=== PATIENT | female | born 1950 | race Caucasian/White ===

== ENCOUNTER 2020-07-20 09:49 | Outpatient (CLI) | payer MEDICARE, SELFPAY ==
[2020-07-20 10:17] LABS: Anion Gap 6 mmol/L (8-16); Blood Urea Nitrogen 29 mg/dL (7-17); Calcium 9.1 mg/dL (8.4-10.2); Carbon Dioxide 31 mmol/L (22-30); Chloride 100 mmol/L (98-107); Estimated Glomerular Filt Rate > 60; Glucose 222 mg/dL (65-105); Potassium 4.3 mmol/L (3.4-5.0); Sodium 137 mmol/L (137-145)
== END 2020-07-20 09:50 | disposition home or self-care (01) ==
LOC: ANHLAB 09:51
PROVIDERS: PCP Family Medicine; Visit Provider Nurse Practitioner Family
DX: R94.4 Abnormal results of kidney function studies (principal)
CPT/HCPCS: 36415; 80048

== ENCOUNTER 2020-10-14 12:27 | Outpatient (CLI) | payer MEDICARE, SELFPAY ==
--- NOTE | ~2020-10-14 | MR_ITS ---
EXAMINATION: MR brain/brain stem wo/w con DATE: 10/14/2020 13:46 INDICATION: Other amnesia. Dizziness. TECHNIQUE: Magnetic resonance imaging (MRI) of the brain and brainstem was performed without and with 15 mL MultiHance intravenous contrast. Sequences included sagittal and axial T1-weighted FSE, axial diffusion-weighted FS EPI, axial T2*-weighted GRE, axial T2-weighted FLAIR Propeller, and axial T2-we ighted Propeller. Postcontrast sequences included axial and coronal T1-weighted FSE. Apparent diffusi on coefficient (ADC) maps were created. COMPARISON: None. FINDINGS: There is no acute ischemic infarct or abnormal mass lesion. There is chronic encephalomalac ia in the left basal ganglia and anterior limb left internal capsule with 11 mm chronic intraparenchy mal hematoma. There are scattered areas of nonspecific increased T2-weighted signal intensity in the cerebral white matter and right lentiform nucleus. There is a small old infarct in left cerebellum. T here is ex vacuo dilatation of anterior body of left lateral ventricle. There are likely changes of o cular lens replacement surgeries. The paranasal sinuses are clear. The mastoid air cells are normal. IMPRESSION: 1. Chronic encephalomalacia involving the left basal ganglia and anterior limb left internal capsule with 11 mm chronic intraparenchymal hematoma. 2. Small old infarct in left cerebellum. 3. Moderate nonspecific cerebral white matter disease and disease of the right lentiform nucleus, whi ch likely represents chronic small vessel ischemic disease. Reviewed, dictated and finalized at location B. IMPRESSION: 1. Chronic encephalomalacia involving the left basal ganglia and anterior limb left internal capsule with 11 mm chronic intraparenchymal hematoma. 2. Small old infarct in left cerebellum. 3. Moderate nonspecific cerebral white matter disease and disease of the right lentiform nucleus, which likely represents chronic small vessel ischemic diseas e.
--- NOTE | ~2020-10-14 | US_ITS ---
EXAMINATION: US carotid duplex BI DATE: 10/14/2020 13:08 INDICATION: Dizziness and giddiness TECHNIQUE: Grayscale, color Doppler, and pulsed Doppler images of the cervical carotid arteries were obtained. The degree of vessel stenosis is placed in one of the following categories: normal, <50%, 5 0-69%, >=70% but less than near-occlusion, near-occlusion, or total occlusion. Note that percent sten osis relative to normal distal artery lumen diameter is indirectly measured from velocity measurement s as described by Dave, et al. Radiology 2003; 229:340-346. Notes: Normal: Peak systolic velocity <125 centimeters/sec and no plaque <50%. Peak systolic velocity <125 ( EDV <40; ICA/CCA PSV ratio <2.0; used these factors only a tandem lesions or low cardiac output or co ntralateral disease) 50-69 %: PSV 125-230 (EDV 40-100; ratio 2-4) >= 70% but less than near occlusion: PSV greater than 230 (EDV > 100; ratio> 4.0) Near Occlusion: PSV that is variable; markedly narrowed lumen Occlusion: Absent flow on color/spectral Doppler and no lumen on strong scale. COMPARISON: None. FINDINGS: RIGHT: The right common carotid artery (CCA) peak systolic velocity (PSV) is 83 cm/s. The right internal car otid artery (ICA) PSV is 63 cm/s. The right ICA end-diastolic velocity (EDV) is 14 cm/s. The right IC A/CCA PSV ratio is 0.7. The external carotid artery (ECA) PSV is 108 cm/s. There is antegrade flow in the right vertebral artery. LEFT: The left CCA PSV is 91 cm/s. The left ICA PSV is 65 cm/s. The left ICA EDV is 14 cm/s. The left ICA/C CA PSV ratio is 0.7. The ECA PSV is 72 cm/s. There is antegrade flow in the left vertebral artery. IMPRESSION: 1. Less than 50% stenosis in the right internal carotid artery by sonographic criteria. 2. Less than 50% stenosis in the left internal carotid artery by sonographic criteria. Reviewed, dictated and finalized at location A. IMPRESSION: 1. Less than 50% stenosis in the right internal carotid artery by sonographic c caesar. 2. Less than 50% stenosis in the left internal carotid artery by sonographic adelia hendrix.
[2020-10-14 13:18] LABS: Estimated Glomerular Filt Rate > 60
== END 2020-10-14 12:28 | disposition home or self-care (01) ==
LOC: ANHIMG 12:29
PROVIDERS: PCP Family Medicine; Visit Provider Physician Assistant Medical
DX: R42 Dizziness and giddiness (principal); R53.1 Weakness; R41.3 Other amnesia; Z91.89 Other specified personal risk factors, not elsewhere classified; G93.89 Other specified disorders of brain; R90.82 White matter disease, unspecified; Z86.73 Personal history of transient ischemic attack (TIA), and cerebral infarction without residual deficits; I65.23 Occlusion and stenosis of bilateral carotid arteries
CPT/HCPCS: 70553; 93880; A9577

== ENCOUNTER 2020-10-17 08:21 | Outpatient (CLI) | payer MEDICARE, SELFPAY ==
--- NOTE | 2020-10-17 08:38 | ECHO_ITS ---
Patient Info Name: Yen Juarez Age: 69 years : 1950 Gender: Female Ht: 63 in Wt: 180 lbs BSA: 1.94 m2 HR: 58 bpm BP: 185 / 92 mmHg Technical Quality: Good Exam Date: 10/17/2020 8:45 AM Exam Location: [facility] Pulmonary Patient Status: Outpatient Admit Date: 10/17/2020 Staff Ordering Physician: Brittany Taylor PAC Maintenance Shop Manager: Kerri Hartman RDCS Attending Provider: Brittany Taylor PAC Referring Physician: Brandon JONES; Exam Type: CA echo doppler color flow Study Info Indications - dizziness giddiness weakness Complete two-dimensional, color flow and Doppler transthoracic echocardiogram is performed. Summary 1. Complete two-dimensional, color flow and Doppler transthoracic echocardiogram is performed. 2. Left ventricular systolic function is normal, estimated at 60-65%. 3. There is mildly increased left ventricular wall thickness. 4. The left ventricular diastolic function is grade I diastolic dysfunction. 5. There is mild aortic valve sclerosis. 6. There is mild mitral valve regurgitation. 7. There is mild tricuspid valve regurgitation. 8. No pulmonary hypertension, estimated pulmonary arterial systolic pressure is 35 mmHg. Left Ventricle Left ventricular chamber dimension is normal. Left ventricular systolic function is normal, estimated at 60-65%. There is mildly increased left ventricular wall thickness. Left ventricular septal wall motion is normal. The left ventricular diastolic function is grade I diastolic dysfunction. Right Ventricle Right ventricular chamber dimension is normal. Right ventricular systolic function is normal. Left Atria Left atrial chamber dimension is normal. Right Atria Right atrial chamber dimension is normal. Atrial Septum Intact interatrial septum visualized by color flow imaging. Aortic Valve The aortic valve is trileaflet. There is mild aortic valve sclerosis. There is no aortic valve stenosis. There is no aortic valve regurgitation. Pulmonic Valve The pulmonic valve is normal. There is no pulmonic valve stenosis. There is no pulmonic regurgitation. Mitral Valve The mitral valve has normal leaflets. There is no mitral valve stenosis. There is mild mitral valve regurgitation. Tricuspid Valve The tricuspid valve leaflets are normal. There is no significant tricuspid valve stenosis. There is mild tricuspid valve regurgitation. No pulmonary hypertension, estimated pulmonary arterial systolic pressure is 35 mmHg. Pericardium/Pleural The pericardium appears normal. There is no pericardial effusion. Inferior Vena Cava Normal inferior vena cava with >50% collapse upon inspiration consistent with normal right atrial pressure, 5 mmHg. Aorta The aortic root size at the sinus of Valsalva is normal. The prox ascending aorta size is normal. Left Ventricular Outflow Tract Name Value Normal LVOT 2D LVOT Diameter 2.0 cm LVOT Doppler LVOT Peak Gradient 4 mmHg LVOT Mean Gradient 2 mmHg LVOT VTI 24 cm LVOT VTI/AV VT
--- NOTE | 2020-10-21 10:01 | WPDHOLTEREM ---
Holter/Event Monitor Holter/Event Monitor Date of procedure: 10/17/20 Procedure Type: 48 hour holter monitor Indications: Dizziness Conclusion: 1. 48 hour holter monitor on 10/17/20. 2. Underlying rhythm is sinus rhythm. HR range 47-99 bpm; average HR 60 bpm. 3. There are 12 premature supraventricular complexes and 6 supraventricular couplets. No supraventricular tachycardia. 4. No premature ventricular complexes. No ventricular tachycardia. 5. No sinoatrial or atrioventricular blocks. No significant pauses greater than 2 seconds. 6. Patient reports symptoms of light cramp which demonstrate sinus rhythm, HR range 59-65 bpm.
== END 2020-10-17 08:22 | disposition home or self-care (01) ==
LOC: ANHCARD 08:23
PROVIDERS: PCP Family Medicine; Visit Provider Physician Assistant Medical
DX: I34.0 Nonrheumatic mitral (valve) insufficiency (principal); I35.1 Nonrheumatic aortic (valve) insufficiency; I36.1 Nonrheumatic tricuspid (valve) insufficiency
CPT/HCPCS: 93225; 93226; 93306

== ENCOUNTER 2021-04-15 08:23 | Outpatient (CLI) | payer MEDICARE, SELFPAY ==
--- NOTE | ~2021-04-15 | US_ITS ---
EXAMINATION: US abdomen complete EXAM DATE: 04/15/2021 09:19 INDICATION: R10.11 - Right upper quadrant pain. TECHNIQUE: Multiple grayscale and Doppler images of the complete abdomen were obtained (by a technolo gist who performed the scan) and subsequently reviewed. There is no prior study for comparison. FINDINGS: The abdominal aorta is normal in caliber. Visualized portion IVC is patent. The pancreatic head a nd body are normal in appearance. The pancreatic tail is not visualized. The liver has normal echogenicity and contour. There are no focal liver lesions identified. There is no evidence of intrahepatic biliary duct dilation. Portal venous flow was seen in the hepatopedal , normal direction and has normal Doppler waveform. Common bile duct measures 3 mm, which is normal. The gallbladder fossa is unremarkable. Right kidney: There is normal contour and echogenicity. It measures 11.6 x 5.0 x 5.4 centimeters. There are no focal renal lesions identified. There is no hydronephrosis. Left kidney: There is normal contour and echogenicity. It measures 11.2 x 5.6 x 5.7 centimeters. T here are no focal renal lesions identified. There is no hydronephrosis. The spleen measures 10.5 centimeters and is morphologically normal. IMPRESSION: Unremarkable complete abdominal ultrasound exam. Reviewed, dictated and finalized at location A. NDENCY PROGRAM DIRECTOR
== END 2021-04-15 08:24 | disposition home or self-care (01) ==
LOC: ANHIMG 08:28
PROVIDERS: PCP Family Medicine; Visit Provider Physician Assistant Medical
DX: R10.11 Right upper quadrant pain (principal)
CPT/HCPCS: 76700

== ENCOUNTER 2022-02-26 12:56 | Outpatient (RCR) | payer MEDICARE, SELFPAY | END 2022-04-22 12:03 | disposition home or self-care (01) | LOC: ANHDMC 12:56 | PROVIDERS: PCP Family Medicine; Visit Provider Internal Medicine Endocrinology, Diabetes & Metabolism | DX: E11.65 Type 2 diabetes mellitus with hyperglycemia (principal); Z71.89 Other specified counseling | CPT/HCPCS: G0108 ==

== ENCOUNTER → 2022-05-13 13:01 | Outpatient (CLI) | payer MEDICARE, SELFPAY ==
--- NOTE | ~2022-05-13 | US_ITS ---
Renal-Bladder ultrasound Clinical History: Proteinuria Technique: Real-time sonographic imaging of the kidneys and urinary bladder was performed. Findings: The right kidney measures 11.4 cm in length and the left kidney measures 11.0 cm. There is no hydronephrosis or renal calculus identified. Renal cortical echogenicity is within normal limits. No renal mass lesion is identified. The urinary bladder is partially distended at the time of this exam. No intraluminal echoes are ident ified. No abnormal wall thickening is seen. Impression: Unremarkable ultrasound of the kidneys and urinary bladder. Reviewed, dictated and finalized at location M. ONAL TRAINING MANAGER Impression: Unremarkable ultrasound of the kidneys and urinary bladder.
== END ==
PROVIDERS: PCP Internal Medicine Nephrology; Visit Provider Internal Medicine Nephrology
DX: R80.8 Other proteinuria (principal); I12.9 Hypertensive chronic kidney disease with stage 1 through stage 4 chronic kidney disease, or unspecified chronic kidney disease; N18.31 Chronic kidney disease, stage 3a; E11.29 Type 2 diabetes mellitus with other diabetic kidney complication
CPT/HCPCS: 76775

== ENCOUNTER 2022-08-20 16:59 | Emergency (ER) | payer MEDICARE, SELFPAY ==
[2022-08-20 17:10] VITALS: BP 168/72; PULSE 63; RESP 16; TEMP 36.6; O2SAT 100
--- NOTE | 2022-08-20 17:10 | ED.SKABFB ---
HPI - Skin/Abscess/Foreign Bdy General Chief complaint: Urogenital-Female Stated complaint: GROIN PAIN Source: patient, family and RN notes reviewed History of Present Illness HPI narrative: 71 yo F presents to urgent care with and daughter at side. Pt presents with a rash to her genital, perianal, and buttock region x 2-3 months. Pt states the rash is painful. Pt states she has chronic urinary incontinence which she just started taking medication for last week. Pt states her incontinence is improving but the rash remains. Pt has been placing Desitin on the rash but states she will have relief for approximately 5 minutes until she urinates and has to take a shower and rinse it off. Pt denies any fevers, chills, chest pain, or SOB. Pt does admit to not taking her diabetes medications as prescribed and states she checks her blood sugar every few days. Pt states it has been staying under 200 mg/dl. Related Data Home Medications Medication Instructions Recorded Confirmed aspirin 81 mg tablet,delayed 81 mg PO DAILY 09/24/21 08/20/22 release cholecalciferol (vitamin D3) 25 25 mcg PO DAILY 05/26/22 08/20/22 mcg (1,000 unit) capsule vibegron 75 mg tablet (Gemtesa) 75 mg PO DAILY 08/20/22 08/20/22 Allergies Allergy/AdvReac Type Severity Reaction Status Date / Time No Known Allergies Allergy Verified 05/26/22 10:13 Review of Systems Review of Systems: CONSTITUTIONAL: Denies fever, chills, or sweats. EYES: Denies visual changes, redness, or discharge. ENT: Denies otalgia and sore throat CARDIOVASCULAR: Denies chest pain, palpitations, or edema. RESPIRATORY: Denies cough or dyspnea. GASTROINTESTINAL: Denies abdominal pain, nausea, vomiting, or diarrhea. GENITOURINARY: Denies dysuria or hematuria. SKIN: Rash MUSCULOSKELETAL: Denies back pain, joint pain, or myalgia. NEUROLOGIC: Denies headache, numbness, or weakness. Pertinent positives per HPI. [facility] Past Medical History Medical History Decreased GFR Diastolic dysfunction Edema Encephalomalacia with cerebral infarction Essential hypertension Hyperlipidemia Memory loss Risk for falls SOB (shortness of breath) Uncontrolled type 2 diabetes mellitus with hyperglycemia, without long-term current use of insulin Urinary incontinence Vitamin D deficiency Surgical History Surgical History History of cholecystectomy Previous section Family History Family History Mother Hypertension Alzheimer disease Father Family history of heart disease in male family member before age 55 Acute myocardial infarction Heart disease Hypertension Grandparent Diabetes mellitus Sibling Kidney failure Amputation of toe Daughter Down syndrome Social History Social History (Updated 06/15/22 @ 15:46 by Sharon Esquivel MA) Smoking status: Never smoker Second hand tobacco smoke exposure: No Alcohol intake: never Substance use: never Lack of Transportation: No Lack of Food: Never True Current Housing: I Have Housing Concerned About Future Housing: No Difficulty Paying Gas/Electric Bills: No Difficulty Paying for Meds: No Currently Unemployed: No Education: High School Diploma/GED Living arrangements: with family Occupation/Education: retired Additional occupation/education comments: dietary/hospital Gender identity (if verbalized by the patient): Female Agree to blood products: Yes Comments At the time of my signature, I reviewed and agree with the nursing past medical, surgical, social, and family history. There is no relevant family history pertinent to the patient complaint. Exam Narrative: GENERAL: This is a well-nourished, well-developed patient, in no apparent distress. HEAD: normocephalic, atrau
== END 2022-08-20 17:50 | disposition home or self-care (01) ==
PROVIDERS: Emergency Provider Nurse Practitioner Family; PCP Family Medicine
DX: L30.9 Dermatitis, unspecified (principal); I10 Essential (primary) hypertension; E78.5 Hyperlipidemia, unspecified; E11.9 Type 2 diabetes mellitus without complications; Z79.84 Long term (current) use of oral hypoglycemic drugs; Z91.128 Patient's intentional underdosing of medication regimen for other reason; Z79.82 Long term (current) use of aspirin; E55.9 Vitamin D deficiency, unspecified
CPT/HCPCS: 99213; G0463

== ENCOUNTER 2022-11-17 01:29 | Outpatient (CLI) | payer MEDICARE, SELFPAY ==
--- NOTE | 2022-11-09 09:57 | PC.NURSE ---
Pre Radiology instructions Report to the outpatient davis arzola on date _11/17/22____ at time __0830____ for procedure Time: _1030___ YOU MAY BE MONITORED AT HOSPITAL FOR UP TO 4 HOURS AFTER YOUR PROCEDURE. A visitor will be allowed to accompany the patient into the hospital. You and your visitor will be asked to self-screen and do not enter if you have any COVID symptoms. A mask is OPTIONAL within the hospital. Patients are to have no food or drink 6 hours prior to procedure time Driving will be restricted after the procedure, you must have a person to drive you home. Labs will be drawn in preop area and once reviewed, you will be taken to radiology area for procedure. When the procedure is completed, you will be taken to outpatient where you will be monitored for several hours. You may have one visitor in this area. Other than holding anti-coagulants, patient may take other medication(s) as scheduled. Prior to your appointment date patients are instructed to hold anti-coagulants after discussing with ordering provider to stop. If unable to discontinue anti-coagulants please notify radiologist. ? No aspirin or warfarin (Coumadin) for 7 days prior to the procedure. ? No clopidogrel (Plavix), ticagrelor (Brilinta), prasugrel (Effient) or dabigatran (Pradaxa) for 5 days prior to the procedure. ? No rivaroxaban (Xarelto), apixaban (Eliquis), dipyridamole (Aggrenox or Persantine) or cilostazol (Pletal) for 2 days prior to the procedure. Medications to discontinue per physician: __ASPIRIN 7 DAYS Date to take last dose: __11/09/22 Please leave all valuables, including medications, at home the day of procedure. The hospital will not accept responsibility for valuables. Wear comfortable, loose fitting clothing.? Follow any additional instructions given to you from ordering provider. Telephone instructions given to _PATIENT and asked if any additional questions and then verbalized understanding. Patient advised to call scheduling provider office or registration scheduling [phone] if any additional questions.
[2022-11-09 10:01] VITALS: BMI 31.7
[2022-11-17 08:18] VITALS: BP 162/77; PULSE 67; RESP 16; TEMP 36.6; O2SAT 100
[2022-11-17 08:40] LABS: Mean Platelet Volume 9.6 fl (7.4-10.4); Platelet Count Result 259 k/mm3 (150-375)
[2022-11-17 08:49] LABS: INR 0.9; Prothrombin Time 12.8 Seconds (11.1-14.7)
--- NOTE | 2022-11-17 12:14 | SUR.PHASEII ---
Radiology procedure cancelled d/t elevated BP. RN took out IV and discharged patient home.
== END 2022-11-17 01:30 | disposition home or self-care (01) ==
PROVIDERS: PCP Family Medicine; Referring Provider Internal Medicine Nephrology; Visit Provider Radiology Diagnostic Radiology
PROC: (CPT 76942; principal; 2022-11-17 10:30)
DX: N18.32 Chronic kidney disease, stage 3b (principal); R80.9 Proteinuria, unspecified; E11.22 Type 2 diabetes mellitus with diabetic chronic kidney disease
CPT/HCPCS: 36415; 85049; 85610